=== PATIENT | female | born 1995 | race Caucasian/White ===

== ENCOUNTER 2020-05-07 20:52 | Emergency (ER) | payer SELFPAY ==
[~2020-05-07] VITALS: Ht 157.4 cm; Wt 99.8 kg
[2020-05-07] MEDS ORDERED: PYRIDIUM200 M1 PO (21:25)
[2020-05-07] MEDS ORDERED: KEFLEX500 M1 PO (21:25)
[2020-05-07 21:30] LABS: BILIRUBIN NEGATIVE (NEGATIVE); BLOOD 1+ (NEGATIVE); CLARITY CLEAR (CLEAR); COLOR YELLOW (YELLOW); GLUCOSE NEGATIVE (NEGATIVE); KETONE NEGATIVE (NEGATIVE); SPECIFIC GRAVITY 1.015 (1.005-1.030)
[2020-05-07 21:31] LABS: BACTERIA TRACE; LEUKO ESTERASE 1+ (NEGATIVE); NITRITE NEGATIVE (NEGATIVE); RBC 0-2 rbc/hpf (0-2); UROBILINOGEN 0.2 E.U./dl (0.2-1.0)
== END 2020-05-07 21:38 | disposition home or self-care (01) ==
LOC: ED 20:52
PROVIDERS: Emergency Medicine Emergency Medical Services
DX: N39.0 Urinary tract infection, site not specified (principal)

== ENCOUNTER 2021-01-16 18:01 | Emergency (ER) | payer OTHER ==
[~2021-01-16] VITALS: Ht 157.4 cm; Wt 108.9 kg
[~2021-01-16 18:01] MED LIST: KEFLEX500 M1 PO; PYRIDIUM200 M1 PO
[2021-01-16] MEDS ORDERED: ZITHROMAX250 MG PO (20:12)
[2021-01-16] MEDS ORDERED: MEDROL DOSEPAK4 MG PO (20:12)
== END 2021-01-16 20:18 | disposition home or self-care (01) ==
LOC: ED 18:01
DX: J40 Bronchitis, not specified as acute or chronic (principal); Z79.2 Long term (current) use of antibiotics; Z79.899 Other long term (current) drug therapy

== ENCOUNTER → 2021-06-23 | Outpatient (CLI) | payer OTHER ==
[~2021-06-23] MED LIST changes: +MEDROL DOSEPAK4 MG PO; +ZITHROMAX250 MG PO
== END | disposition home or self-care (01) ==
LOC: COVID19 17:59
PROVIDERS: ATTEND Student in an Organized Health Care Education/Training Program
DX: Z11.52 Encounter for screening for COVID-19 (principal)